=== PATIENT | female | born 1980 | race Two or more races ===

== ENCOUNTER 2021-10-23 11:20 | Inpatient (IN) | payer OTHER ==
[~2021-10-23] VITALS: Ht 157.5 cm; Wt 64.9 kg
[2021-10-23 12:05] LABS: Basophils # (auto) 0 10 ^3/uL (0-0.2); Eosinophils # (auto) 0 10 ^3/uL (0-0.8); Hemoglobin 12.9 g/dL (12.2-16.2); Lymphocytes # (auto) 0.6 10 ^3/uL (0.4-5.4); Monocytes # (auto) 0 10 ^3/uL (0-1.3); Red Cell Distribution Width 14.1 % (11.8-14.3)
[2021-10-23 12:06] LABS: Calcium 8.9 mg/dL (8.5-10.1)
[2021-10-23 12:09] LABS: Basophils % (auto) 0.6 % (0.0-2.0); Eosinophils % (auto) 1.4 % (0.0-7.0); Hematocrit 36.5 % (36.0-46.0); Lymphocytes % (auto) 37.2 % (10.0-50.0); Mean Corpuscular Hemoglobin 32.5 pg (28.0-32.0); Mean Corpuscular Hgb Conc. 35.5 g/dL (32.0-36.0); Mean Corpuscular Volume 91.5 fL (80.0-100.0); Monocytes % (auto) 2.4 % (0.0-12.0); Neutrophils % (auto) 58.4 % (37.0-80.0); Red Blood Cells 3.99 10^6/uL (4.0-5.20)
[2021-10-23 12:10] LABS: BUN/Creatinine Ratio 15.7; Bilirubin, Total 1.3 mg/dL (0.2-1.0); Total Protein 7.4 g/dL (6.4-8.2)
[2021-10-23 12:55] LABS: White Blood Cell 1.7 10^3/uL (4.4-10.8)
[2021-10-23] MEDS ORDERED: IOHEXOL 350 MG/ML 100ML IJ ONE (13:30)
[2021-10-23 14:03] LABS: Urine Bacteria FEW /hpf (None Seen); Urine Blood 3+ /uL (Negative); Urine Specific Gravity 1.011 (1.001-1.035); Urine WBC 202 /hpf (0 - 5)
[2021-10-23] MEDS ORDERED: NITROGLYCERIN 0.4 MG SL TAB SL PRN (17:30)
[2021-10-23] MEDS ORDERED: SODIUM CHLORIDE 0.9% 1,000 ML IV SCH (17:30)
[2021-10-23 20:25] VITALS: BP 93/61
[2021-10-23] MEDS: guaiFENesin-DM 100/10mg/5ml SYR PO PRN (21:21)
[2021-10-23 22:00] VITALS: BP 97/61
[2021-10-23] MEDS: SODIUM CHLORIDE 0.9% 1,000 ML IV SCH (23:11)
[2021-10-24] VITALS (11 sets, daily range): BP systolic 96–113; BP diastolic 56–68
[2021-10-24] MEDS: guaiFENesin-DM 100/10mg/5ml SYR PO PRN ×3 (02:29→22:51)
[2021-10-24] MEDS: ACETAMINOPHEN 325 MG TAB PO PRN ×2 (04:18→17:27)
[2021-10-24 05:16] LABS: Albumin 2.4 g/dL (3.4-5.0); Calcium 7.7 mg/dL (8.5-10.1); Potassium 3.8 mmol/L (3.5-5.1)
[2021-10-24 05:19] LABS: BUN/Creatinine Ratio 15.3
[2021-10-24 05:21] LABS: Bilirubin, Total 1.3 mg/dL (0.2-1.0); Total Protein 5.8 g/dL (6.4-8.2)
[2021-10-24] MEDS: SODIUM CHLORIDE 0.9% 1,000 ML IV SCH ×3 (05:25→22:30)
[2021-10-24 08:21] LABS: Hematocrit 26.3 % (36.0-46.0); Hemoglobin 9.3 g/dL (12.2-16.2); Mean Corpuscular Hemoglobin 32.8 pg (28.0-32.0); Mean Corpuscular Hgb Conc. 35.4 g/dL (32.0-36.0); Mean Corpuscular Volume 92.7 fL (80.0-100.0); Red Blood Cells 2.84 10^6/uL (4.0-5.20); Red Cell Distribution Width 14.1 % (11.8-14.3)
[2021-10-24 08:26] LABS: White Blood Cell 1.6 10^3/uL (4.4-10.8)
[2021-10-24 08:27] LABS: Basophils % (manual) 0 (0.0-2.0); Blast Cells 0; Promyelocytes % 0; Reactive Lymphocytes 0
[2021-10-24 09:04] LABS: Band Neutrophils % (manual) 11; Eosinophils % (manual) 2 (0-7); Lymphocytes % (manual) 51 (10.0-50.0); Metamyelocytes % 1; Monocytes % (manual) 1 (0-12); Myelocytes % 1
[2021-10-24] MEDS: medroxyPROGESTERone ACETATE 5 MG TAB PO SCH (09:49)
[2021-10-24] MEDS ORDERED: SODIUM FERR GLUC 62.5MG/5ML 125 MG in SODIUM CHL 0.9% 100 ML IV ONE (10:15)
[2021-10-24 11:39] LABS: INR 1.16 (0.9-1.15); Partial Thromboplastin Time 31.3 sec (23.6-33.0)
[2021-10-24] MEDS ORDERED: diphenhdrAMINE HCL 50 MG/1 ML VL IV ONE (11:45)
[2021-10-24 16:31] LABS: Hematocrit 24.9 % (36.0-46.0); Hemoglobin 8.9 g/dL (12.2-16.2); Mean Corpuscular Hgb Conc. 35.6 g/dL (32.0-36.0)
[2021-10-24 16:33] LABS: Mean Corpuscular Hemoglobin 32.4 pg (28.0-32.0); Mean Corpuscular Volume 90.8 fL (80.0-100.0); Red Blood Cells 2.74 10^6/uL (4.0-5.20); Red Cell Distribution Width 13.9 % (11.8-14.3)
[2021-10-24 16:45] LABS: Basophils % (manual) 0 (0.0-2.0); Blast Cells 0; Metamyelocytes % 0; Myelocytes % 0; Promyelocytes % 0
[2021-10-24 17:14] LABS: Band Neutrophils % (manual) 14; Eosinophils % (manual) 2 (0-7); Lymphocytes % (manual) 64 (10.0-50.0); Monocytes % (manual) 4 (0-12); Reactive Lymphocytes 1
[2021-10-24 23:01] LABS: Basophils # (auto) 0 10 ^3/uL (0-0.2); Eosinophils # (auto) 0 10 ^3/uL (0-0.8); Hemoglobin 8.6 g/dL (12.2-16.2); Monocytes # (auto) 0.1 10 ^3/uL (0-1.3); Neutrophils # (auto) 0.7 10 ^3/uL (1.6-8.6)
[2021-10-24 23:03] LABS: Basophils % (auto) 0.7 % (0.0-2.0); Eosinophils % (auto) 1.5 % (0.0-7.0); Hematocrit 24.5 % (36.0-46.0); Lymphocytes % (auto) 54.8 % (10.0-50.0); Mean Corpuscular Hemoglobin 32.3 pg (28.0-32.0); Mean Corpuscular Volume 92.2 fL (80.0-100.0); Monocytes % (auto) 3.4 % (0.0-12.0); Neutrophils % (auto) 39.6 % (37.0-80.0); Nucleated Red Blood Cells % 0.6 %; Red Blood Cells 2.65 10^6/uL (4.0-5.20)
[2021-10-24 23:08] LABS: White Blood Cell 1.7 10^3/uL (4.4-10.8)
[2021-10-25] VITALS (14 sets, daily range): BP systolic 94–107; BP diastolic 55–70
[2021-10-25 06:24] LABS: Hemoglobin 7.6 g/dL (12.2-16.2)
[2021-10-25 06:27] LABS: Hematocrit 21.1 % (36.0-46.0); Mean Corpuscular Volume 91.5 fL (80.0-100.0); Red Blood Cells 2.31 10^6/uL (4.0-5.20); Red Cell Distribution Width 13.8 % (11.8-14.3)
[2021-10-25] MEDS: SODIUM CHLORIDE 0.9% 1,000 ML IV SCH (06:30)
[2021-10-25 06:39] LABS: INR 1.23 (0.9-1.15); Partial Thromboplastin Time 36.5 sec (23.6-33.0)
[2021-10-25 06:45] LABS: Calcium 7.9 mg/dL (8.5-10.1); Potassium 3.5 mmol/L (3.5-5.1)
[2021-10-25 06:48] LABS: Albumin 2.3 g/dL (3.4-5.0); BUN/Creatinine Ratio 14.3
[2021-10-25 07:06] LABS: Bilirubin, Total 1.4 mg/dL (0.2-1.0); Total Protein 5.6 g/dL (6.4-8.2)
[2021-10-25 08:38] LABS: White Blood Cell 1.5 10^3/uL (4.4-10.8)
[2021-10-25 08:40] LABS: Basophils % (manual) 0 (0.0-2.0); Blast Cells 0; Eosinophils % (manual) 0 (0-7); Metamyelocytes % 0; Myelocytes % 0; Promyelocytes % 0
[2021-10-25 09:04] LABS: Band Neutrophils % (manual) 3; Lymphocytes % (manual) 57 (10.0-50.0); Monocytes % (manual) 4 (0-12); Reactive Lymphocytes 4
[2021-10-25] MEDS ORDERED: diphenhdrAMINE HCL 50 MG/1 ML VL IV ONE ×2 (09:30→22:00)
[2021-10-25] MEDS: AZITHROMYCIN 250 MG TAB PO SCH (10:29)
[2021-10-25] MEDS: medroxyPROGESTERone ACETATE 5 MG TAB PO SCH (10:30)
[2021-10-25] MEDS: SODIUM FERR GLUC 62.5MG/5ML 125 MG in SODIUM CHL 0.9% 100 ML IV SCH (14:19)
[2021-10-25] MEDS: ACETAMINOPHEN 325 MG TAB PO PRN (18:13)
[2021-10-25 19:39] LABS: Red Cell Distribution Width 14.6 % (11.8-14.3)
[2021-10-25 19:41] LABS: Hematocrit 26.7 % (36.0-46.0); Hemoglobin 9.5 g/dL (12.2-16.2); Mean Corpuscular Hemoglobin 31.7 pg (28.0-32.0); Mean Corpuscular Hgb Conc. 35.4 g/dL (32.0-36.0); Mean Corpuscular Volume 89.6 fL (80.0-100.0); Red Blood Cells 2.99 10^6/uL (4.0-5.20)
[2021-10-25 19:58] LABS: White Blood Cell 1.5 10^3/uL (4.4-10.8)
[2021-10-25 20:00] LABS: Basophils % (manual) 0 (0.0-2.0); Blast Cells 0; Myelocytes % 0; Promyelocytes % 0
[2021-10-25 21:17] LABS: Band Neutrophils % (manual) 8; Eosinophils % (manual) 2 (0-7); Lymphocytes % (manual) 55 (10.0-50.0); Metamyelocytes % 2; Monocytes % (manual) 5 (0-12); Reactive Lymphocytes 2
[2021-10-25] MEDS ORDERED: ACETAMINOPHEN 325 MG TAB PO ONE (22:00)
[2021-10-26] VITALS (7 sets, daily range): BP systolic 96–107; BP diastolic 53–64
[2021-10-26 08:27] LABS: Hemoglobin 9.8 g/dL (12.2-16.2); Red Cell Distribution Width 14.7 % (11.8-14.3)
[2021-10-26 08:29] LABS: Hematocrit 27.7 % (36.0-46.0); Mean Corpuscular Hemoglobin 31.9 pg (28.0-32.0); Mean Corpuscular Hgb Conc. 35.3 g/dL (32.0-36.0); Mean Corpuscular Volume 90.4 fL (80.0-100.0); Red Blood Cells 3.06 10^6/uL (4.0-5.20)
[2021-10-26 08:58] LABS: White Blood Cell 1.4 10^3/uL (4.4-10.8)
[2021-10-26 08:59] LABS: Basophils % (manual) 0 (0.0-2.0); Blast Cells 0; Metamyelocytes % 0; Myelocytes % 0; Promyelocytes % 0
[2021-10-26] MEDS: AZITHROMYCIN 250 MG TAB PO SCH (09:58)
[2021-10-26] MEDS: medroxyPROGESTERone ACETATE 5 MG TAB PO SCH (09:58)
[2021-10-26 12:44] LABS: Band Neutrophils % (manual) 4; Eosinophils % (manual) 2 (0-7); Lymphocytes % (manual) 48 (10.0-50.0); Monocytes % (manual) 3 (0-12); Reactive Lymphocytes 7
[2021-10-26] MEDS: SODIUM FERR GLUC 62.5MG/5ML 125 MG in SODIUM CHL 0.9% 100 ML IV SCH (13:00)
[2021-10-27] MEDS ORDERED: LORATADINE 10 MG TAB PO SCH (10:00)
== END 2021-10-26 17:28 | disposition home or self-care (01) | DRG 532 ==
LOC: ER 11:20 → OVERFLOW 17:24 → CENTRAL 19:55
PROVIDERS: ADMIT Internal Medicine; ATTEND Internal Medicine
PROC: 30233R1 Transfusion of Nonautologous Platelets into Peripheral Vein, Percutaneous Approach (ICD-10-PCS; principal; 2021-10-24)
PROC: 30233N1 Transfusion of Nonautologous Red Blood Cells into Peripheral Vein, Percutaneous Approach (ICD-10-PCS; 2021-10-25)
DX: N92.0 Excessive and frequent menstruation with regular cycle (principal); D69.6 Thrombocytopenia, unspecified; E87.1 Hypo-osmolality and hyponatremia; E88.09 Other disorders of plasma-protein metabolism, not elsewhere classified; E11.65 Type 2 diabetes mellitus with hyperglycemia; D72.819 Decreased white blood cell count, unspecified; J98.8 Other specified respiratory disorders; R79.89 Other specified abnormal findings of blood chemistry; Z20.822 Contact with and (suspected) exposure to COVID-19; Z83.3 Family history of diabetes mellitus; Z85.6 Personal history of leukemia; Z92.21 Personal history of antineoplastic chemotherapy; Z91.041 Radiographic dye allergy status
CPT/HCPCS: 36415; 70450; 71250; 74176; 76856; 80053; 81001; 83605; 83880; 84484; 84702; 85007; 85025; 85027; 85610; 85730; 86850; 86900; 86901; 86920; 93005; 96360; 96361; G0378